=== PATIENT | male | born 1990 | race Two or more races ===

== ENCOUNTER 2017-01-02 09:58 | Emergency (ER) | payer BC ==
[2017-01-02 10:15] VITALS: BP 126/82
--- NOTE | 2017-01-02 10:56 | EDM.PDOC ---
ED HPI Trauma - General Chief Complaint: Upper Extremity Injury/Pain Stated Complaint: RIGHT HAND INJURY Time Seen by Provider: 01/02/17 10:38 Source: Reports: Patient History Limitations: Reports: No limitations - History of Present Illness INITIAL COMMENTS - FREE TEXT/NARRATIVE: Patient presents with right hand/wrist pain after punching a wall last night while intoxicated and after getting upset with a friend. No numbness or tingling. No other injuries. Allergies/ADRs: Allergies No Known Drug Allergies Allergy (Verified 01/02/17 10:15) Cannot Remember Home Medications: Ambulatory Orders . [No Known Home Meds] 01/02/17 [Confirmed 01/02/17] Past Medical History - Infectious Disease History Infectious Disease History: Reports: Chicken pox - Past Surgical History Head Surgeries/Procedures: Reports: None Social & Family History - Family History Family Medical History: Noncontributory - Tobacco Use Smoking Status *Q: Never Smoker Second Hand Smoke Exposure: No - Caffeine Use Caffeine Use: Reports: Coffee, Soda - Recreational Drug Use Recreational Drug Use: Yes Drug Use in Last 12 Months: No Recreational Drug Type: Reports: Marijuana/Hashish Recreational Drug Use Frequency: Not Used In Over 1 Year Review of Systems - Review of Systems Review Of Systems: ROS reveals no pertinent complaints other than HPI. Trauma Exam - Physical Exam Exam: See Below Exam Limited By: No limitations General Appearance: Reports: alert, WD/WN, no apparent distress Head: Reports: atraumatic, normocephalic Eyes: bilateral eye: EOMI, normal inspection, PERRL Ears: Reports: normal external exam, hearing grossly normal Throat/Mouth: Reports: Normal lips, Normal voice, No airway compromise Neck: Reports: full range of motion Respiratory Exam: Reports: no respiratory distress Extremities: Reports: other (right hand is tender at 4th and 5th mcp joints, wrist tender laterally and dorsally. Painful with maximal dorsiflexion and volar flexion. No navicular pain. Elbow and shoulder pain free with ROM. Distal CMS intact. ) Neurologic: Reports: no motor/sensory deficits, alert, normal mood/affect, oriented x 3 Skin: Reports: Normal color, Warm/dry Course - Vital Signs Last Recorded V/S: Last Vital Signs Temp 97.9 F 01/02/17 10:12 Pulse 81 01/02/17 10:12 Resp 16 01/02/17 10:12 BP 126/82 01/02/17 10:12 Pulse Ox 96 01/02/17 10:12 - Orders/Labs/Meds Orders: Active Orders 24 hr Category Date Time Status Hand 2V Rt [CR] Stat Exams 01/02/17 10:45 Ordered Wrist Comp Min 3V Rt [CR] Stat Exams 01/02/17 10:45 Ordered - Re-Assessments/Exams Free Text/Narrative Re-Assessment/Exam: 01/02/17 12:40 xrays of wrist and hand reveal no fractures or dislocations. Discussed findings with pt and fitted him with a wrist splint. Pt discharged in stable condition. Departure - Departure Time of Disposition: 12:37 Disposition: Home, Self-Care 01 Condition: good Clinical Impression: Right wrist sprain Qualifiers: Encounter type: initial encounter Qualified Code(s): S63.501A - Unspecified sprain of right wrist, initial encounter Forms: ED Department Discharge Additional Instructions: 1. Wear splint on wrist as needed for support and comfort. 2. Light duty as tolerated with right arm at work for a week then follow up with a doctor for recheck, especially if worsening. - My Orders Last 24 Hours: My Active Orders 01/02/17 10:45 Hand 2V Rt [CR] Stat Wrist Comp Min 3V Rt [CR] Stat - Assessment/Plan Last 24 Hours: My Active Orders 01/02/17 10:45 Hand 2V Rt [CR] Stat Wrist Comp Min 3V Rt [CR] Stat
== END 2017-01-02 12:52 | disposition home or self-care (01) ==
LOC: KA.ED 09:58
DX: S63.501A Unspecified sprain of right wrist, initial encounter (principal); W22.01XA Walked into wall, initial encounter
CPT/HCPCS: 73110-RT; 73120-RT; 99283

== ENCOUNTER 2021-01-04 18:14 | Emergency (ER) | payer BC, OTHER ==
[2021-01-04 19:10] VITALS: BP 139/84; PULSE 100
--- NOTE | 2021-01-04 19:19 | EDM.PDOC ---
ED HPI GENERAL MEDICAL PROBLEM - General Stated Complaint: RASH Time Seen by Provider: 01/04/21 18:37 Source of Information: Reports: Patient History Limitations: Reports: No Limitations - History of Present Illness INITIAL COMMENTS - FREE TEXT/NARRATIVE: Patient presents with a painful lump on dorsal right hand/wrist that just started today without any injury. He says that he had a remote injury and a small lump for awhile but nothing recently until today. He is also concerned about several small oral sores and blisters on lower lip that started about 36 hours ago. He has never had them before and he did have oral sex with a girl he didn't know well about ten days ago. At the time she denied any herpes or STD's but now he is worried it might be. He had a fever yesterday and day before but gone today. He also developed an unusual pain in left distal arm and rash on both forearms a couple days ago. The arm pain is gone but now pain in left leg without any injury. - Related Data Allergies Allergy/AdvReac Type Severity Reaction Status Date / Time No Known Drug Allergies Allergy Cannot Verified 01/04/21 19:10 Remember Home Meds: Home Meds . [No Known Home Meds] 01/02/17 [History] Past Medical History HEENT History: Reports: None Cardiovascular History: Reports: None Respiratory History: Reports: None Gastrointestinal History: Reports: None Genitourinary History: Reports: None Neurological History: Reports: None Psychiatric History: Reports: None Endocrine/Metabolic History: Reports: None Hematologic History: Reports: None Immunologic History: Reports: None Oncologic (Cancer) History: Reports: None Dermatologic History: Reports: None - Infectious Disease History Infectious Disease History: Reports: Chicken Pox - Past Surgical History Head Surgeries/Procedures: Reports: None Social & Family History - Family History Family Medical History: No Pertinent Family History - Tobacco Use Tobacco Use Status *Q: Never Tobacco User - Caffeine Use Caffeine Use: Reports: Coffee, Soda - Alcohol Use Days Per Week of Alcohol Use: 1 Number of Drinks Per Day: 1 Total Drinks Per Week: 1 - Recreational Drug Use Recreational Drug Use: Yes Drug Use in Last 12 Months: Yes Recreational Drug Type: Reports: Marijuana/Hashish ED ROS GENERAL - Review of Systems Review Of Systems: See Below Constitutional: Denies: Fever, Malaise, Weakness HEENT: Denies: Ear Pain, Throat Pain, Vision Change Respiratory: Denies: Shortness of Breath, Cough Cardiovascular: Denies: Chest Pain, Lightheadedness, Syncope GI/Abdominal: Denies: Abdominal Pain, Diarrhea, Vomiting : Reports: Other (no genital sores or lesions). Denies: Dysuria, Flank Pain Musculoskeletal: Reports: Hand Pain, Leg Pain. Denies: Neck Pain, Shoulder Pain, Arm Pain, Back Pain, Foot Pain Skin: Denies: Cyanosis, Jaundice, Mottled, Pallor, Diaphoresis Neurological: Denies: Confusion, Dizziness, Seizure, Syncope, Trouble Speaking, Difficulty Walking Psychiatric: Denies: Agitation, Anxiety, Confusion ED EXAM, GENERAL - Physical Exam Exam: See Below Exam Limited By: No Limitations General Appearance: Alert, WD/WN, No Apparent Distress Eye Exam: Bilateral Eye: EOMI, Normal Inspection, PERRL Ears: Normal External Exam, Hearing Grossly Normal Nose: Normal Inspection, No Blood Throat/Mouth: Normal Teeth, Normal Gums, Normal Oropharynx, Normal Voice, No Airway Compromise, Other (There are several 1-3 mm erythematous open and closed vesicles on left side of lower lip, mostly internal, in a cluster.) Head: Atraumatic, Normocephalic Neck: Normal Inspection, Full Range of Motion Respiratory/Chest: No Respiratory Distress, Lungs Clear, Normal Breath Sounds, No Accessory Muscle Use Cardiovascular: Regular Rate, Rhythm, No Murmur Back Exam: Normal Inspection, Full Range of Motion. No: CVA Tenderness (L), CVA Tenderness (R) Extremities: Arm Pain (there is a 1.5 x 4 cm lump diagonally on proximal dorsal hand ending at mid-dorsal right wrist. The proximal half of it is fluctuant but firm in distal half. It is quite tender to palpation and very painful with any dorsiflexion or volar flexion. No erythema, ecchymosis or broken skin.), Leg Pain (The left medial knee is very tender to palpation along the MCL but nontender elsewhere throughout knee. Also a small tender region of anteromedial left ankle/foot junction. No erythema, swelling, ecchymosis or deformity in either area. Full ROM throughout knee and ankle.) Neurological: Alert, Oriented, Normal Cognition, No Motor/Sensory Deficits Psychiatric: Normal Affect, Normal Mood Skin Exam: Warm, Dry, Intact, Normal Color, Rash Course - Vital Signs Last Recorded V/S: Last Vital Signs Temp 97.4 F 01/04/21 18:30 Pulse 100 01/04/21 18:30 Resp 20 01/04/21 18:30 BP 139/84 01/04/21 18:30 Pulse Ox 99 01/04/21 18:30 - Re-Assessments/Exams Free Text/Narrative Re-Assessment/Exam: 01/04/21 21:11 Xrays of right hand and wrist show no acute or healing fracture per report. Some Dorsal soft tissue swelling that could be inflammatory, posttraumatic, mass or ganglion cyst. Clinically most consistent with ganglion cyst. I also noticed an old fracture of the proximal 5th metacarpal that underlies the cyst. We placed a velcro splint to support and limit ROM for comfort. For the mouth sores (presumed HSV), I prescribed Valacyclovir 1000 mg # 20, 1 po bid for 10 days and also gave two doses from ER for now and tomorrow morning. He will follow up in [facility] tomorrow for the PCR testing since it cannot be done here tonight per lab. I discussed this with Karlene Huitron who agrees. I discussed findings and recommendations/treatment plan with patient. He is emotional about the possibility of having herpes and will start the treatment as well as follow up as recommended. I also advised orthopedic follow up for the wrist and knee if persisting. Discharged to home in stable condition. Departure - Departure Time of Disposition: 20:53 Disposition: Home, Self-Care 01 Condition: Good Clinical Impression: Viral vesicles of mouth, Ganglion cyst of dorsum of right wrist, Sprain of medial collateral ligament of left knee, initial encounter - Discharge Information Referrals: PCP,Not In Area [Primary Care Provider] - Additional Instructions: Wear the wrist splint for comfort and to limit wrist movement for 1-2 weeks as needed. Follow up with orthopedics for this and the knee pain if it persists beyond a week. Take Ibuprofen 600 mg three times a day for pain and inflammation as needed for 1-2 weeks. Take the Valacyclovir for the mouth sores as directed. Fill the prescription tomorrow. Follow up in [facility] tomorrow for PCR testing of the mouth sores. Sepsis Event Note (ED) - Evaluation Sepsis Screening Result: No Definite Risk - Focused Exam Vital Signs: Vital Signs Temp Pulse Resp BP Pulse Ox 01/04/21 18:30 97.4 F 100 20 139/84 99
[2021-01-04] MEDS: Ibuprofen 600 MG Tab PO ONE (19:45)
[2021-01-04] MEDS: valACYclovir 500 MG Tab PO ONE (21:15)
--- NOTE | 2021-01-05 08:31 | CR ---
[id number] RAD/RAD Wrist Right 2V EXAM: 2 VIEWS RIGHT WRIST. INDICATION: PAINFUL DORSAL LUMP. COMPARISON: None. DISCUSSION: No fracture, dislocation or other acute osseous abnormality. Mild soft tissue edema involving the distal radius/proximal hand. This is nonspecific. In the absence of trauma this could represent a soft tissue mass including a ganglion cyst. IMPRESSION: 1. As above. Tom Crisostomo DO 01/05/21 0829 Thank you for allowing us to participate in the care of your patient.
== END 2021-01-04 21:20 | disposition home or self-care (01) ==
LOC: KA.ED 18:14
DX: S83.412A Sprain of medial collateral ligament of left knee, initial encounter (principal); M67.431 Ganglion, right wrist; R23.8 Other skin changes; X58.XXXA Exposure to other specified factors, initial encounter
CPT/HCPCS: 73100-RT; 73130-RT; 86592; 99283; 99284; A9270-GY

== ENCOUNTER 2021-01-08 17:10 | Observation (INO) | payer OTHER ==
[2021-01-08] MEDS ORDERED: Sodium Chloride 0.9% 10 ML Syringe FLUSH PRN (18:24)
[2021-01-08 18:42] LABS: CHLORIDE,CL 101 mmol/L (98-107); SODIUM,NA 139 mmol/L (136-145)
[2021-01-08] MEDS: cefTRIAXone 1 GM Vial IVPUSH SCH (19:47)
[2021-01-08] MEDS: valACYclovir 500 MG Tab PO SCH (21:24)
[2021-01-09] MEDS: valACYclovir 500 MG Tab PO SCH ×2 (08:00→20:03)
--- NOTE | 2021-01-09 08:57 | PCM.PN ---
- General Info Date of Service: 01/09/21 Functional Status: Reports: Pain Controlled - Review of Systems General: Denies: Fever, Weakness Pulmonary: Reports: No Symptoms Cardiovascular: Reports: No Symptoms Gastrointestinal: Reports: No Symptoms Genitourinary: Denies: Dysuria, Frequency, Burning, Pain, Urgency, Incontinence, Hematuria, Flank Pain Skin: Reports: Rash (now resolved) Neurological: Reports: No Symptoms Psychiatric: Reports: No Symptoms - Patient Data Vitals - Most Recent: Last Vital Signs Temp 97.4 F 01/09/21 06:18 Pulse 59 L 01/09/21 06:18 Resp 18 01/09/21 06:18 BP 93/65 01/09/21 06:18 Pulse Ox 97 01/09/21 06:18 Weight - Most Recent: 157 lb 12.8 oz I&O - Last 24 Hours: Intake & Output 01/08/21 01/09/21 01/09/21 22:59 06:59 14:59 Intake Total 630 200 Output Total 100 200 Balance 530 0 Lab Results Last 24 Hours: Laboratory Results - last 24 hr 01/08/21 01/08/21 01/08/21 Range/Units 17:30 18:00 18:00 WBC 10.03 H (5.00-10.00) 10^3/uL RBC 4.94 (4.50-6.00) 10^6/uL Hgb 15.1 (13.0-17.0) g/dL Hct 44.9 (40.0-52.0) % MCV 90.9 (82.0-92.0) fL MCH 30.6 (27.0-31.0) pg MCHC 33.6 (32.0-36.0) g/dL RDW 12.0 (11.5-14.5) % Plt Count 315 (150-400) 10^3/uL MPV 10.1 (7.4-10.4) fL Immature Gran % (Auto) 2.8 (0.0-5.0) % Neut % (Auto) 69.8 (50.0-70.0) % Lymph % (Auto) 19.1 L (20.0-40.0) % Boyle % (Auto) 7.3 (2.0-8.0) % Eos % (Auto) 0.5 L (1.0-3.0) % Baso % (Auto) 0.5 (0.0-1.0) % Neut # (Auto) 7.00 (2.50-7.00) 10^3/uL Lymph # (Auto) 1.92 (1.00-4.00) 10^3/uL Boyle # (Auto) 0.73 (0.10-0.80) 10^3/uL Eos # (Auto) 0.05 L (0.10-0.30) 10^3/uL Baso # (Auto) 0.05 (0.00-0.10) 10^3/uL Immature Gran # (Auto) 0.28 (0.00-0.50) 10^3/uL Sodium (136-145) mmol/L Potassium (3.5-5.1) mmol/L Chloride (98-107) mmol/L Carbon Dioxide (21.0-32.0) mmol/L Anion Gap (5-15) mmol/L BUN (7-18) mg/dL Creatinine (0.51-1.17) mg/dL Est Cr Clr Drug Dosing Estimated GFR (MDRD) mL/min Glucose (70-140) mg/dL Calcium (8.7-10.3) mg/dL Total Bilirubin (0.2-1.0) mg/dL AST (15-37) U/L ALT (14-63) U/L Alkaline Phosphatase (46-116) U/L C-Reactive Protein (0.0-0.9) mg/dL Total Protein (6.4-8.2) g/dL Albumin (3.40-5.00) g/dL Specimen Type Urinvoid Urine Color Yellow (YELLOW) Urine Appearance Clear (CLEAR) Urine pH 7.0 (5.0-9.0) Ur Specific [place] 1.020 (1.005-1.030) Urine Protein 30 H (NEGATIVE) mg/dL Urine Glucose (UA) Negative (NEGATIVE) mg/dL Urine Ketones Trace H (NEGATIVE) mg/dL Urine Occult Blood Trace-intact H (NEGATIVE) Urine Nitrite Negative (NEGATIVE) Urine Bilirubin Small H (NEGATIVE) Urine Urobilinogen 2.0 H (0.2-1.0) E.U./dL Ur Leukocyte Esterase Negative (NEGATIVE) Urine RBC 0-5 (0-5) /HPF Urine WBC 0-5 (0-5) /HPF Ur Epithelial Cells Few /LPF Urine Bacteria Few (NONE TO FEW) /HPF SARS CoV-2 RNA Rapid WILLIE Negative (NEGATIVE) 01/08/21 01/08/21 01/09/21 Range/Units 18:00 18:00 07:35 WBC 6.85 (5.00-10.00) 10^3/uL RBC 4.51 (4.50-6.00) 10^6/uL Hgb 13.8 (13.0-17.0) g/dL Hct 41.9 (40.0-52.0) % MCV 92.9 H (82.0-92.0) fL MCH 30.6 (27.0-31.0) pg MCHC 32.9 (32.0-36.0) g/dL RDW 12.1 (11.5-14.5) % Plt Count 302 (150-400) 10^3/uL MPV 9.9 (7.4-10.4) fL Immature Gran % (Auto) 4.7 (0.0-5.0) % Neut % (Auto) 52.6 (50.0-70.0) % Lymph % (Auto) 32.3 (20.0-40.0) % Boyle % (Auto) 7.6 (2.0-8.0) % Eos % (Auto) 1.6 (1.0-3.0) % Baso % (Auto) 1.2 H (0.0-1.0) % Neut # (Auto) 3.61 (2.50-7.00) 10^3/uL Lymph # (Auto) 2.21 (1.00-4.00) 10^3/uL Boyle # (Auto) 0.52 (0.10-0.80) 10^3/uL Eos # (Auto) 0.11 (0.10-0.30) 10^3/uL Baso # (Auto) 0.08 (0.00-0.10) 10^3/uL Immature Gran # (Auto) 0.32 (0.00-0.50) 10^3/uL Sodium 139 (136-145) mmol/L Potassium 4.0 (3.5-5.1) mmol/L Chloride 101 (98-107) mmol/L Carbon Dioxide 26.0 (21.0-32.0) mmol/L Anion Gap 16.0 H (5-15) mmol/L BUN 11 (7-18) mg/dL Creatinine 0.91 (0.51-1.17) mg/dL Est Cr Clr Drug Dosing TNP Estimated GFR (MDRD) > 60 mL/min Glucose 101 (70-140) mg/dL Calcium 8.9 (8.7-10.3) mg/dL Total Bilirubin 0.4 (0.2-1.0) mg/dL AST 47 H (15-37) U/L ALT 92 H (14-63) U/L Alkaline Phosphatase 135 H (46-116) U/L C-Reactive Protein 44.6 H (0.0-0.9) mg/dL Total Protein 7.6 (6.4-8.2) g/dL Albumin 3.38 L (3.40-5.00) g/dL Specimen Type Urine Color (YELLOW) Urine Appearance (CLEAR) Urine pH (5.0-9.0) Ur Specific [place] (1.005-1.030) Urine Protein (NEGATIVE) mg/dL Urine Glucose (UA) (NEGATIVE) mg/dL Urine Ketones (NEGATIVE) mg/dL Urine Occult Blood (NEGATIVE) Urine Nitrite (NEGATIVE) Urine Bilirubin (NEGATIVE) Urine Urobilinogen (0.2-1.0) E.U./dL Ur Leukocyte Esterase (NEGATIVE) Urine RBC (0-5) /HPF Urine WBC (0-5) /HPF Ur Epithelial Cells /LPF Urine Bacteria (NONE TO FEW) /HPF SARS CoV-2 RNA Rapid WILLIE (NEGATIVE) Med Orders - Current: Current Medications Ceftriaxone Sodium (Ceftriaxone 1 Gm Vial) 1 gm IVPUSH Q24H [facility] Last Admin: 01/08/21 19:47 Dose: 1 gm Documented by: Doxycycline Hyclate (Doxycycline 50 Mg Cap) 100 mg PO BID [facility] Last Admin: 01/09/21 08:00 Dose: 100 mg Documented by: Naproxen (Naproxen Sodium 220 Mg Tab) 440 mg PO BIDMEALS [facility] Last Admin: 01/09/21 07:55 Dose: 440 mg Documented by: Sodium Chloride (Sodium Chloride 0.9% 10 Ml Syringe) 10 ml FLUSH Q8HR PRN PRN Reason: keep vein open Valacyclovir HCl (Valacyclovir 500 Mg Tab) 1,000 mg PO BID [facility] Last Admin: 01/09/21 08:00 Dose: 1,000 mg Documented by: - Exam General: Alert, Oriented HEENT: Other (Herpes lesion lower lip) Neck: Supple Lungs: Clear to Auscultation, Normal Respiratory Effort Cardiovascular: Regular Rate, Regular Rhythm GI/Abdominal Exam: Normal Bowel Sounds, Soft, Non-Tender, No Organomegaly, No Distention, No Abnormal Bruit, No Mass, Pelvis Stable (Male) Exam: Other (Groin lymphadenopathy). No: Scrotal Swelling Extremities: Other (This to lower extremities completely resolved, mild edema noted lateral malleolus right ankle ) - Patient Data Lab Results Last 24 hrs: Laboratory Results - last 24 hr 01/08/21 01/08/21 01/08/21 Range/Units 17:30 18:00 18:00 WBC 10.03 H (5.00-10.00) 10^3/uL RBC 4.94 (4.50-6.00) 10^6/uL Hgb 15.1 (13.0-17.0) g/dL Hct 44.9 (40.0-52.0) % MCV 90.9 (82.0-92.0) fL MCH 30.6 (27.0-31.0) pg MCHC 33.6 (32.0-36.0) g/dL RDW 12.0 (11.5-14.5) % Plt Count 315 (150-400) 10^3/uL MPV 10.1 (7.4-10.4) fL Immature Gran % (Auto) 2.8 (0.0-5.0) % Neut % (Auto) 69.8 (50.0-70.0) % Lymph % (Auto) 19.1 L (20.0-40.0) % Boyle % (Auto) 7.3 (2.0-8.0) % Eos % (Auto) 0.5 L (1.0-3.0) % Baso % (Auto) 0.5 (0.0-1.0) % Neut # (Auto) 7.00 (2.50-7.00) 10^3/uL Lymph # (Auto) 1.92 (1.00-4.00) 10^3/uL Boyle # (Auto) 0.73 (0.10-0.80) 10^3/uL Eos # (Auto) 0.05 L (0.10-0.30) 10^3/uL Baso # (Auto) 0.05 (0.00-0.10) 10^3/uL Immature Gran # (Auto) 0.28 (0.00-0.50) 10^3/uL Sodium (136-145) mmol/L Potassium (3.5-5.1) mmol/L Chloride (98-107) mmol/L Carbon Dioxide (21.0-32.0) mmol/L Anion Gap (5-15) mmol/L BUN (7-18) mg/dL Creatinine (0.51-1.17) mg/dL Est Cr Clr Drug Dosing Estimated GFR (MDRD) mL/min Glucose (70-140) mg/dL Calcium (8.7-10.3) mg/dL Total Bilirubin (0.2-1.0) mg/dL AST (15-37) U/L ALT (14-63) U/L Alkaline Phosphatase (46-116) U/L C-Reactive Protein (0.0-0.9) mg/dL Total Protein (6.4-8.2) g/dL Albumin (3.40-5.00) g/dL Specimen Type Urinvoid Urine Color Yellow (YELLOW) Urine Appearance Clear (CLEAR) Urine pH 7.0 (5.0-9.0) Ur Specific [place] 1.020 (1.005-1.030) Urine Protein 30 H (NEGATIVE) mg/dL Urine Glucose (UA) Negative (NEGATIVE) mg/dL Urine Ketones Trace H (NEGATIVE) mg/dL Urine Occult Blood Trace-intact H (NEGATIVE) Urine Nitrite Negative (NEGATIVE) Urine Bilirubin Small H (NEGATIVE) Urine Urobilinogen 2.0 H (0.2-1.0) E.U./dL Ur Leukocyte Esterase Negative (NEGATIVE) Urine RBC 0-5 (0-5) /HPF Urine WBC 0-5 (0-5) /HPF Ur Epithelial Cells Few /LPF Urine Bacteria Few (NONE TO FEW) /HPF SARS CoV-2 RNA Rapid WILLIE Negative (NEGATIVE) 04/01/21 04/01/21 04/02/21 Range/Units 18:00 18:00 07:35 WBC 6.85 (5.00-10.00) 10^3/uL RBC 4.51 (4.50-6.00) 10^6/uL Hgb 13.8 (13.0-17.0) g/dL Hct 41.9 (40.0-52.0) % MCV 92.9 H (82.0-92.0) fL MCH 30.6 (27.0-31.0) pg MCHC 32.9 (32.0-36.0) g/dL RDW 12.1 (11.5-14.5) % Plt Count 302 (150-400) 10^3/uL MPV 9.9 (7.4-10.4) fL Immature Gran % (Auto) 4.7 (0.0-5.0) % Neut % (Auto) 52.6 (50.0-70.0) % Lymph % (Auto) 32.3 (20.0-40.0) % Boyle % (Auto) 7.6 (2.0-8.0) % Eos % (Auto) 1.6 (1.0-3.0) % Baso % (Auto) 1.2 H (0.0-1.0) % Neut # (Auto) 3.61 (2.50-7.00) 10^3/uL Lymph # (Auto) 2.21 (1.00-4.00) 10^3/uL Boyle # (Auto) 0.52 (0.10-0.80) 10^3/uL Eos # (Auto) 0.11 (0.10-0.30) 10^3/uL Baso # (Auto) 0.08 (0.00-0.10) 10^3/uL Immature Gran # (Auto) 0.32 (0.00-0.50) 10^3/uL Sodium 139 (136-145) mmol/L Potassium 4.0 (3.5-5.1) mmol/L Chloride 101 (98-107) mmol/L Carbon Dioxide 26.0 (21.0-32.0) mmol/L Anion Gap 16.0 H (5-15) mmol/L BUN 11 (7-18) mg/dL Creatinine 0.91 (0.51-1.17) mg/dL Est Cr Clr Drug Dosing TNP Estimated GFR (MDRD) > 60 mL/min Glucose 101 (70-140) mg/dL Calcium 8.9 (8.7-10.3) mg/dL Total Bilirubin 0.4 (0.2-1.0) mg/dL AST 47 H (15-37) U/L ALT 92 H (14-63) U/L Alkaline Phosphatase 135 H (46-116) U/L C-Reactive Protein 44.6 H (0.0-0.9) mg/dL Total Protein 7.6 (6.4-8.2) g/dL Albumin 3.38 L (3.40-5.00) g/dL Specimen Type Urine Color (YELLOW) Urine Appearance (CLEAR) Urine pH (5.0-9.0) Ur Specific [place] (1.005-1.030) Urine Protein (NEGATIVE) mg/dL Urine Glucose (UA) (NEGATIVE) mg/dL Urine Ketones (NEGATIVE) mg/dL Urine Occult Blood (NEGATIVE) Urine Nitrite (NEGATIVE) Urine Bilirubin (NEGATIVE) Urine Urobilinogen (0.2-1.0) E.U./dL Ur Leukocyte Esterase (NEGATIVE) Urine RBC (0-5) /HPF Urine WBC (0-5) /HPF Ur Epithelial Cells /LPF Urine Bacteria (NONE TO FEW) /HPF SARS CoV-2 RNA Rapid WILLIE (NEGATIVE) Result Diagrams: 01/09/21 07:35 01/09/21 07:35 Sepsis Event Note - Evaluation Sepsis Screening Result: No Definite Risk - Focused Exam Vital Signs: Vital Signs Temp Pulse Resp BP Pulse Ox 01/09/21 06:18 97.4 F 59 L 18 93/65 97 01/09/21 03:00 97.3 F 59 L 18 104/56 L 99 01/08/21 22:04 96.9 F 76 20 125/76 98 - Problem List Review Problem List Initiated/Reviewed/Updated: Yes - Plan Plan:: History Summary: Mr Welsh was admitted into OBS status by Dr. Kalin kang for initial preliminary concerns of possible septic arthritis/systemic infection. 01/02/21, he had acute onset of vomiting, he reported subjective fever, today he states his temperature at that time was 110 degrees. chills, and generalized weakness. The following day, he noticed pain in the left forearm and noted a dif fuse red rash, with a reported temperature down to 100.7-- all the symptoms resolved without intervention, but he noted on 01/04/21 the onset of pain in his R wrist/hand and blisters on his lips which prompted him to be seen at [facility] ED. 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 XR of the R hand/wrist showed no bony abnormality, but did reveal mild nonspecific soft tissue edema possibly thought to represent a ganglion cyst. RPR was obtained and subsequently noted to be negative. Patient was seen on 01/06/21 by QUINTEN Shepherd, at [facility] for ED follow-up when he was noted to have worsening L ankle pain and swelling. COVID testing was performed and negative given the history of fever, chills, and vomiting. One of the vesicular lesions was unroofed and sent for viral PCR, subsequently positive for HSV-1. HIV testing negative. Urine gonorrhea and chlamydia testing negative. Oral gonorrhea and chlamydia testing obtained and pending. CBC notable for WBC 14.5 with 12.1 neutrophils. ESR 36. Uric acid 5.2. XR of the L ankle showed no abnormalities. Given the effusion, arthrocentesis was performed and subsequently showing many WBCs and RBCs without organisms on gram stain with no growth after overnight incubation with final report pending. Given differential diagnosis included disseminated gonococcal infection, ceftriaxone 1g IM was initiated and he was given second dose on 01/07/21. Patient evaluated by Dr. Lisa kang on the day of admission and he reported initial improvement in the L ankle following arthrocentesis, but feeling quite a bit worse again significant difficulty ambulating. He has also began noticing pain in the R lateral ankle and L knee which feel like the initial stages of how his L ankle felt. Had generalized malaise and weakness along with chills. No known measured fever. Appetite decreased. Had one episode of emesis that morning again. Since starting valacyclovir, he has had no new oral vesicular lesions. He reports no known history of cold sores. He reports having had oral sex without barrier protection and vaginal intercourse with barrier protection with a new sexual partner approximately 2 weeks ago. He denies no known history of STI. Previously healthy 30yoM who developed an acute possibly febrile illness 1 week ago followed by what has now become polyarthralgia with recent onset of additional pain and swelling in the R ankle and L knee in addition to previously affected L ankle and R wrist. Also with PCR confirmed HSV-1 oral lesions which developed approximately 1 week following oral intercourse without barrier protection with new sexual partner. Given the entirety of the clinical background and in the setting of normal XR imaging of R wrist and L ankle and laboratory results, differential diagnosis favors possibilities of disseminated gonococcal infection (specifically the gxlqnvmmwanqh-qomnpbltay-lnyrzajwfdauen syndrome) and reactive arthritis, possibly from GI infection or chlamydia. Septic arthritis remains a possibility, though migratory arthralgias makes this less likely. Denies IV drug use however smokes marijuana Hospital course 01/09/2021; patient feels good, no fever or chills, nurses reported extensive erythematous hot red demarcated rash during majority of right lower extremity below the knee and approximately 25% of the patient's right lower extremity more laterally toward ankle however completely resolved this morning. Count now no rmal with slightly elevated basophils favorable. Fever chills, good appetite, no sore throat, no dysuria no rash to palms of hands or feet Primary hospital problems --Possible reactive arthritis, broader/differential diagnosis gonococcal arthritis less likely Disposition/overall plan --Continue observation today for ongoing IV Rocephin, oral antibiotics and monitoring of any new rashes, edema, joint pain, fever etc. --Right now continue with doxycycline, rocephin, valacyclovir 1000mg po BID --Discharge likely tomorrow with continue with doxycycline x7 days with NSAIDs
[2021-01-09 09:01] LABS: ANION GAP 14.1 mmol/L (5-15); CHLORIDE,CL 104 mmol/L (98-107); SODIUM,NA 141 mmol/L (136-145)
[2021-01-09] MEDS: cefTRIAXone 1 GM Vial IVPUSH SCH (20:03)
[2021-01-10 06:51] VITALS: BP 105/65; PULSE 61
[2021-01-10] MEDS: valACYclovir 500 MG Tab PO SCH (08:32)
--- NOTE | 2021-01-10 10:44 | PCM.DCSUM1 ---
Discharge Summary - Hospital Course Diagnosis: Stroke: No - Discharge Data Discharge Date: 01/10/21 Discharge Disposition: Home, Self-Care 01 Condition: Good - Referral to Home Health Primary Care Physician: Karie Sibley MD - Patient Instructions Diet: Usual Diet as Tolerated, Drink 8-10+ Glasses/Day Activity: No Strenuous Activities Driving: May Drive Today Notify Provider of: Fever, Increased Pain, Swelling and Redness, Nausea and/or Vomiting - Discharge Plan *PRESCRIPTION DRUG MONITORING PROGRAM REVIEWED*: Not Applicable *COPY OF PRESCRIPTION DRUG MONITORING REPORT IN PATIENT ROMÁN: Not Applicable Prescriptions/Med Rec: Azithromycin 1,000 mg PO ONETIME #2 tablet Famotidine 20 mg PO DAILY #30 tablet Naproxen Sodium 440 mg PO BIDMEALS #28 tablet valACYclovir [Valtrex] 1,000 mg PO BID #6 tab Doxycycline [Vibramycin] 100 mg PO BID #14 cap Home Medications: Home Meds Azithromycin 1,000 mg PO ONETIME #2 tablet 01/10/21 [Rx] Doxycycline [Vibramycin] 100 mg PO BID #14 cap 01/10/21 [Rx] Famotidine 20 mg PO DAILY #30 tablet 01/10/21 [Rx] Naproxen Sodium 440 mg PO BIDMEALS #28 tablet 01/10/21 [Rx] valACYclovir [Valtrex] 1,000 mg PO BID #6 tab 01/10/21 [Rx] Forms: Return to Work/Inpatient OON Referrals: Karie Sibley MD [Primary Care Provider] - (Call [facility] Tuesday for appointment, [phone]. Tell them you were in the hospital and you need a follow-up around mid week) - Discharge Summary/Plan Comment DC Time >30 min.: Yes Discharge Summary/Plan Comment: Final diagnosis Reactive arthritis, N.gonorrhoeae, oropharyngeal Ganglion cyst, right hand dorsal History Summary: Mr Welsh was admitted into OBS status by Dr. Kalin kang for initial preliminary concerns of possible septic arthritis/systemic infection. 01/02/21, he had acute onset of vomiting, he reported subjective fever, today he states his temperature at that time was 110 degrees. chills, and generalized weakness. The following day, he noticed pain in the left forearm and noted a diffuse red rash, with a reported temperature down to 100.7-- all the symptoms resolved without intervention, but he noted on 01/04/21 the onset of pain in his R wrist/hand and blisters on his lips which prompted him to be seen at [facility] ED. 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 XR of the R hand/wrist showed no bony abnormality, but did reveal mild nonspecific soft tissue edema possibly thought to represent a ganglion cyst. RPR was obtained and subsequently noted to be negative. Patient was seen on 01/06/21 by QUINTEN Shepherd, at [facility] for ED follow-up when he was noted to have worsening L ankle pain and swelling. COVID testing was performed and negative given the history of fever, chills, and vomiting. One of the vesicular lesions was unroofed and sent for viral PCR, subsequently positive for HSV-1. HIV testing negative. Urine gonorrhea and chlamydia testing negative. Oral gonorrhea and chlamydia testing obtained and pending. CBC notable for WBC 14.5 with 12.1 neutrophils. ESR 36. Uric acid 5.2. XR of the L ankle showed no abnormalities. Given the effusion, arthrocentesis was performed and subsequently showing many WBCs and RBCs without organisms on gram stain with no growth after overnight incubation with final report pending. Given differential diagnosis included disseminated gonococcal infection, ceftriaxone 1g IM was initiated and he was given second dose on 01/07/21. Patient evaluated by Dr. Lisa kang on the day of admission and he reported initial improvement in the L ankle following arthrocentesis, but feeling quite a bit worse again significant difficulty ambulating. He has also began noticing pain in the R lateral ankle and L knee which feel like the initial stages of how his L ankle felt. Had generalized malaise and weakness along with chills. No known measured fever. Appetite decreased. Had one episode of emesis that morning again. Since starting valacyclovir, he has had no new oral vesicular lesions. He reports no known history of cold sores. He reports having had oral sex without barrier protection and vaginal intercourse with barrier protection with a new sexual partner approximately 2 weeks ago. He denies no known history of STI. Previously healthy 30yoM who developed an acute possibly febrile illness 1 week ago followed by what has now become polyarthralgia with recent onset of addition al pain and swelling in the R ankle and L knee in addition to previously affected L ankle and R wrist. Also with PCR confirmed HSV-1 oral lesions which developed approximately 1 week following oral intercourse without barrier protection with new sexual partner. Given the entirety of the clinical background and in the setting of normal XR imaging of R wrist and L ankle and laboratory results, differential diagnosis favors possibilities of disseminated gonococcal infection (specifically the zhrybdxkaubah-cebgvokpim-zidpyzyaqtikyq syndrome) and reactive arthritis, possibly from GI infection or chlamydia. Septic arthritis remains a possibility, though migratory arthralgias makes this less likely. Denies IV drug use however smokes marijuana Hospital course 01/09/2021; patient feels good, no fever or chills, nurses reported extensive erythematous hot red demarcated rash during majority of right lower extremity below the knee and approximately 25% of the patient's right lower extremity more laterally toward ankle however completely resolved this morning. Count now normal with slightly elevated basophils favorable. Fever chills, good appetite, no sore throat, no dysuria no rash to palms of hands or feet 01/10/2021; No overnight calls nor concerns patient. No fever or chills, feels good, vital signs good, slight edema right ankle otherwise no returning rash. Edema dorsal aspect right hand suggestive of ganglion cyst. Oropharyngeal [place] [facility] returned with positive N.gonorrhoeae. Synovial cultures no growth, Medication changes/adjustments upon discharge --Azithromycin, 1 g p.o. x1 --[id number] mg p.o. twice daily x7 days --valacyclovir 1000mg po BID x 4 more days --Aleve 440 mg p.o. twice daily with food --Famotidine, 20 mg p.o. daily, (newly added upon DC due to heartburn) Disposition/overall plan --Will be discharge from observation status with follow-up next week with Dr. Lisa kang --Reframe from sexual activity, --Not to return to work until cleared by Dr. Lisa kang. --Careful home care instructions were given to report fever, chills, vomiting, returning edema/rash - General Info Functional Status: Reports: Pain Controlled - Review of Systems General: Reports: No Symptoms HEENT: Reports: No Symptoms Pulmonary: Reports: No Symptoms Cardiovascular: Reports: No Symptoms Gastrointestinal: Reports: No Symptoms Genitourinary: Denies: Dysuria, Frequency, Burning, Pain, Urgency - Patient Data Vitals - Most Recent: Last Vital Signs Temp 97.7 F 01/10/21 06:50 Pulse 61 01/10/21 06:50 Resp 20 01/10/21 06:50 BP 105/65 01/10/21 06:50 Pulse Ox 99 01/10/21 06:50 Weight - Most Recent: 157 lb 12.8 oz I&O - Last 24 hours: Intake & Output 01/09/21 01/10/21 01/10/21 22:59 06:59 14:59 Intake Total 480 0 Balance 480 0 Lab Results - Last 24 hrs: Laboratory Results - last 24 hr 01/09/21 01/09/21 Range/Units 07:35 07:35 ESR 44 H (0-15) mm/hr Procalcitonin 0.18 H ng/mL [facility] Results - Last 24 hrs: Microbiology 01/08/21 18:00 Aerobic Blood Culture - Preliminary Blood - Arm, Right NO GROWTH AFTER 1 DAY Anaerobic Blood Culture - Preliminary NO GROWTH AFTER 1 DAY 01/08/21 17:45 Aerobic Blood Culture - Preliminary Blood - Arm, Left NO GROWTH AFTER 1 DAY Anaerobic Blood Culture - Preliminary NO GROWTH AFTER 1 DAY Med Orders - Current: Current Medications Ceftriaxone Sodium (Ceftriaxone 1 Gm Vial) 1 gm IVPUSH Q24H [facility] Last Admin: 01/09/21 20:03 Dose: 1 gm Documented by: Doxycycline Hyclate (Doxycycline 50 Mg Cap) 100 mg PO BID [facility] Last Admin: 01/10/21 08:33 Dose: 100 mg Documented by: Naproxen (Naproxen Sodium 220 Mg Tab) 440 mg PO BIDMEALS [facility] Last Admin: 01/10/21 08:31 Dose: 440 mg Documented by: Sodium Chloride (Sodium Chloride 0.9% 10 Ml Syringe) 10 ml FLUSH Q8HR PRN PRN Reason: keep vein open Valacyclovir HCl (Valacyclovir 500 Mg Tab) 1,000 mg PO BID [facility] Last Admin: 01/10/21 08:32 Dose: 1,000 mg Documented by:
== END 2021-01-10 11:20 | disposition home or self-care (01) ==
LOC: KA.MS 17:30
PROVIDERS: ADMIT Family Medicine; ATTEND Family Medicine
DX: R53.1 Weakness (principal); M25.472 Effusion, left ankle; M67.441 Ganglion, right hand; A54.5 Gonococcal pharyngitis; K13.70 Unspecified lesions of oral mucosa; M25.572 Pain in left ankle and joints of left foot; M25.571 Pain in right ankle and joints of right foot; M25.531 Pain in right wrist; M25.562 Pain in left knee; B00.89 Other herpesviral infection; D72.829 Elevated white blood cell count, unspecified; R26.89 Other abnormalities of gait and mobility; Z20.822 Contact with and (suspected) exposure to COVID-19; Z79.899 Other long term (current) drug therapy; Z98.890 Other specified postprocedural states
CPT/HCPCS: 36415; 80053; 81001; 81374; 84145; 85025; 85652; 86140; 87040; 96374; 96376; A9270-GY; G0378; J0696; U0002